=== PATIENT | female | born 1975 | race Caucasian/White ===

== ENCOUNTER 2016-11-29 23:11 | Observation (INO) | payer OTHER ==
[~2016-11-29] VITALS: Ht 154.9 cm; Wt 103.9 kg
[2016-11-29 23:13] VITALS: BP 159/115; PULSE 122; RESP 18; O2SAT 98
--- NOTE | 2016-11-29 23:52 | ED.REPORT ---
HPI-Rash / Abscess Date of Service Nov 29, 2016 ED Provider: Dr. Johnson The pt is a 41 y/o female with a hx of DM and MRSA who presents to the ED complaining of painful perineal abscess, onset 3 days ago. Associated sx include suprapubic pain and subjective fever. The pt had similar sx about a year ago at which point she had an I&D of her perineal abscess. She denies any other sx at this time. Nursing Notes Stated Complaint: PAIN IN GROIN AREA Chief Complaint: General Complaint Nursing Notes Reviewed: Yes Allergies: Coded Allergies: cephalexin (Verified Allergy, Unknown, rash, 11/29/16) Scheduled Metformin (Metformin) 500 Mg Tablet 2,000 MG PO DAILY General Time Seen by MD: 23:51 Chief Complaint Abscess Hx Obtained From: Patient Arrived By: Walk-in Onset Occurred: 3 days ago Symptom Duration: Since onset Location: : Perineum Quality: Painful Severity: Current: Severe Severity: Maximum: Severe Recent Healthcare: No recent doctor visit Past Medical History Past Medical History MRSA Reports: Diabetes mellitus Past Surgical History I&D of perineal abscess Smoking History Unknown if Ever Smoker Social History From [facility] Other Social History: Good social support Ambulatory Status Independent Review of Systems Reports: painful perineal abscess Constitutional: Reports: Fever (subjective) GI: Reports: Abdominal pain Complete sys rev & neg: except as marked. Physical Exam Initial Vital Signs Vital Signs (First) Date Time Temp Pulse Resp B/P Pulse Ox O2 Delivery O2 Flow Rate FiO2 11/29/16 23:13 36.6 122 18 159/115 98 Room Air Initial VS: Reviewed Head / Eyes: Atraumatic, Normocephalic Neck: Supple, Non-tender, Full range of motion Respiratory: Breath sounds normal, Clear to auscultation, No respiratory distress Abdomen / GI: Soft, Non-tender Extremities: Vascular intact, Neuro intact, No swelling, No tenderness Neurologic: Alert, Oriented, Nonfocal General/Constitutional: Awake, Alert, Cooperative Distress / Hydration: Positive: Distress moderate Skin: Atraumatic, Color NL, Warm, Dry Cardiovascular: Regular rhythm, Heart sounds NL, No gallop, No murmurs, No rubs Heart Rate / Rhythm: Positive: Tachycardia Female Genitourinary: Wastewater Technician present, Atraumatic, No bleeding, No discharge Swelling of both labia and superpubic area with erythema. Interpretation & Diagnostics Lab Results Interpretation Result Diagram: 11/30/16 0010 11/30/16 0010 Test 11/30/16 00:06 11/30/16 00:10 Hold Urine Received (Received) White Blood Count 8.8th/mm3 (3.8-10.1) Red Blood Count 4.50mil/mm3 (3.90-5.20) Hemoglobin 13.4g/dL (12.0-15.6) Hematocrit 37.8% (35.0-46.0) Mean Corpuscular Volume 84.0fL (81-100) Mean Corpuscular Hemoglobin 29.8pg (27.0-35.0) Mean Corpuscular Hemoglobin Concent 35.4% (32.0-37.0) Red Cell Distribution Width 14.8% (12.3-15.4) Platelet Count 183bil/L (150-400) Neutrophils (%) (Auto) 72.4% (40-74) Lymphocytes (%) (Auto) 19.5% (14-46) Monocytes (%) (Auto) 5.4% (4-12) Eosinophils (%) (Auto) 2.3% (0-5) Basophils (%) (Auto) 0.1% (0-3) Sodium Level 135mEq/L (134-144) Potassium Level 3.5mEq/L (3.5-5.2) Chloride Level 98mEq/L (97-108) Carbon Dioxide Level 22mmol/L (18-29) Blood Urea Nitrogen 8mg/dL (6-20) Creatinine 0.44mg/dL (0.57-1.00) Estimat Glomerular Filtration Rate 228mL/min (>59) Glucose Level 414mg/dL (60-99) Lactic Acid Level 1.3mmol/L (0.4-2.0) Calcium Level 9.0mg/dL (8.5-10.1) Magnesium Level 1.6mg/dL (1.6-2.6) Total Bilirubin 0.9mg/dL (0.0-1.2) Aspartate Amino Transf (AST/SGOT) 17U/L (0-50) Alanine Aminotransferase (ALT/SGPT) 18U/L (0-32) Alkaline Phosphatase 70U/L (25-150) Total Protein 7.3g/dL (6.4-8.4) Albumin 3.9g/dL (3.4-5.0) Lab Results Interpretation: negative X-Ray Chest Interpretation Chest Xray Interpretation: No acute findings View: Portable, 1 view Interpretation / Wet Read by: Wet read ED physician CT Abd / Pelvis Interpretation Impression: Inflammatory changes of the right vulva. No mature abscess collection. There is a more localized area of fluid measuring approximately 2.5 cm in greatest dimension. Follow up is recommended to rule out pietro abscess formation. Signed by Dr. Carrillo Wu 11/30/16 01:57 Study type: Abdominal CT IV contrast Interpretation / Wet Read by: Interpret - Radiologist Re-Eval/Medical Decision Med Decision/Clinical Course 37-year-old female who has a recurrent labial cellulitis/abscess. She is tachycardic but not hypotensive and does not meet other criteria for sepsis. However this is a fairly risky location for infection. The CT scan is not definitive for abscess but certainly suggestive of early abscess. Patient was discussed with and will be admitted to her service for IV antibiotics and recheck. I suspect that she will go to the OR for abscess drainage. Re-Evaluation/Progress : Time of Eval: 02:47 Re-Evaluation/Progress Note: Rechecked pt. Discussed lab results, imaging results,diagnosis and plan to admit. Pt understands and agrees with the plan for admission. All questions addressed. Consultation : Referral / Consult Name: Luisa Bernal MD Call Returned at: 02:40 Hatchery Attendant: Will see patient, Agrees with eval, Accepts admit Note: Dr. Bernal recommends admitting the pt. Counseled Regarding: Diagnosis, Lab results, Need for admission Discharge & Departure Impression: Primary Impression: Labial abscess Additional Impression: Cellulitis Site of cellulitis: other site Qualified Code: L03.818 - Cellulitis of other sites Disposition: ADMITTED TO HOSPITAL Discharge Condition All VS Reviewed: Yes Scribe Attestation Portions of this note were transcribed by Lizabeth Vick. I,, personally performed the history, physical exam and medical decision-making;I reviewed and confirmed the accuracy of the information in the transcribed note. Signed by Jennifer Hood. 11/30/16 Denny Johnson MD Nov 29, 2016 23:52 Lizabeth Vick Nov 30, 2016 00:36
[2016-11-29] MEDS ORDERED: 0.9% Sodium Chloride 1,000 ML IV ONE (23:56)
[2016-11-29] MEDS ORDERED: METF500T4 PO (23:57)
[2016-11-30] VITALS (9 sets, daily range): BP systolic 103–138; BP diastolic 72–99; PULSE 68–108; RESP 16–20; O2SAT 96–99
[2016-11-30] MEDS ORDERED: Ondansetron 2 mg/mL 2 mL Inj IVPUSH PRN (00:15)
[2016-11-30] MEDS: HYDROmorphone 0.5 mg/0.5 mL iSecure Syringe IVPUSH PRN ×5 (00:32→07:47)
[2016-11-30 00:47] LABS: BASOPHILS % (AUTO) 0.1 % (0-3); EOSINOPHILS % (AUTO) 2.3 % (0-5); MONOCYTES % (AUTO) 5.4 % (4-12); Mean Corpuscular Hemoglobin 29.8 pg (27.0-35.0); NEUTROPHILS % (AUTO) 72.4 % (40-74); Platelet Count 183 bil/L (150-400)
[2016-11-30 01:09] LABS: Magnesium 1.6 mg/dL (1.6-2.6)
[2016-11-30] MEDS ORDERED: Clindamycin Inj 900 MG in IV Premix 1 EACH IV ONE (02:30)
[2016-11-30] MEDS ORDERED: Dextrose 5% 0.45% NaCl 1,000 ML IV SCH (02:50)
[2016-11-30] MEDS ORDERED: HYDROmorphone 1 mg/mL Inj IVPUSH PRN (03:35)
[2016-11-30] MEDS ORDERED: ALBU8.5H2 INHALATION (04:24)
--- NOTE | 2016-11-30 06:14 | NUR ---
Admit Pt admitted to [facility] Rm 1028 at 0400 from the ER. Pt can ambulate independently and is steady on feet, although activity does cause increased pain. Pt reporting pain 3/10 to right side of labia at rest and does not feel the need for pain meds at this time. Pt placed NPO and educated on why. IV patent and running fluids. Pt placed on tele, SR 88. Pt given pad and mesh panties for minimal spotting.
[2016-11-30 07:25] LABS: APPEARANCE,URINE CLEAR (CLEAR,HAZY); COLOR,URINE YELLOW (YELLOW); OCCULT BLOOD,URINE NEGATIVE (NEGATIVE); UROBILINOGEN,URINE NORMAL (NORMAL)
[2016-11-30] MEDS ORDERED: 0.9% Sodium Chloride 1,000 ML IV ONE (07:35)
[2016-11-30] MEDS ORDERED: Glucose 40% Oral Gel 15 Gm Tube PO PRN (07:40)
--- NOTE | 2016-11-30 07:42 | DRSVH ---
PROCEDURE: X-RAY CHEST ONE VIEW, PORTABLE ([id number]) INDICATIONS: vulvar abscesses, septic TECHNIQUE: One view of the chest was acquired. COMPARISON: None. FINDINGS: Surgical changes and devices: None. Lungs and pleura: No pleural effusions or pneumothorax. Lungs are clear. Mediastinum: Mediastinal contours appear normal. Heart size is normal. Bones and chest wall: No suspicious bony lesions. Overlying soft tissues appear unremarkable. IMPRESSION: No radiographic evidence of acute cardiopulmonary pathology. Dictated by: Amrik Lee M.D. on 11/30/2016 at 7:40 Approved by: Amrik Lee M.D. on 11/30/2016 at 7:41
--- NOTE | 2016-11-30 08:57 | DRSVH ---
PROCEDURE: CT PELVIS WITH CONTRAST ([id number]) INDICATIONS: vulvar abscesses TECHNIQUE: After the administration of intravenous contrast, 5 mm thick sections acquired from the iliac crests to the symphysis. 5 mm coronal and sagittal reformats were acquired. For radiation dose reduction, the following was used: automated exposure control, adjustment of mA and/or kV according to patient size. COMPARISON: None. FINDINGS: Image quality: Excellent. Peritoneum and bowel: Bowel loops demonstrate normal wall thickness and caliber. No free fluid or a ir. Genitourinary: Bladder wall thickness is normal. Presence of intrauterine device noted. Nodes and vessels: No iliac, pelvic, or inguinal adenopathy by size criteria. Iliac vessels demonst rate normal size and enhancement. Bones: No suspicious bony lesions. Miscellaneous: No inguinal hernias. There is a 3.7 x 1.7 x 2.2 cm fluid collection with enhancing pe riphery in the right vulva compatible with abscess. Marked inflammatory changes are noted adjacent to the right vulvar abscess. IMPRESSION: 3.7 x 1.7 x 2.2 cm right vulvar abscess. Dictated by: Yuko Duron MD, PhD on 11/30/2016 at 8:45 Approved by: Yuko Duron MD, PhD on 11/30/2016 at 8:56
[2016-11-30] MEDS: Insulin LISPRO 300 Unit/3 mL Inj SUBQ SCH ×4 (09:09→22:09)
[2016-11-30] MEDS: Vancomycin Dose per Pharmacist XX SCH (09:50)
--- NOTE | 2016-11-30 09:51 | NUR ---
Blood Glucose Medium dose sliding scale ordered this AM by RONNI Bernal. Talked with her about blood glucose monitoring and she would like checks prior to meals and 2 hours after eating. Will check blood glucose at these times. Addendum: 11/30/16 at 1811 by MACY MADRID RN Patient's blood glucose continues to be over 200 while on Glargine and medium dose lispro. Paged Dr. Bernal to ask about changing insulin algorithm. Awaiting call back.
[2016-11-30] MEDS ORDERED: Insulin GLARgine 100 Unit/mL Syringe SUBQ SCH (09:55)
--- NOTE | 2016-11-30 10:03 | PCM.CHPMED ---
Subjective Date of Service: Nov 30, 2016 Provider requesting consult: Luisa Bernal MD Primary Physician: Admitting Physician: Luisa Bernal MD Primary Care Physician: Nopmaren Attending Physician: Luisa Bernal MD Chief Complaint: Chief Complaint: right vulvar painful swelling/6 days History of Present Illness: 41-year-old lady with past medical history of diabetes, history of right vulvar abscess presented with right vulvar painful swelling of 6 days. She states she noted a painful nodule on her right vulva 6 days ago which progressively increased in size and involved the whole right vulva with worsening of pain. Swelling and pain currently involves proximal part of medial thigh. Denies fever. Denies recent itching or scratching of vulva. She states she shaved her vulva few days prior to onset of swelling. Denies any recent sexual contact. She had similar right vulvar abscess a year ago which required hospitalization, I&D in OR and 2 weeks vancomycin via PICC line. She was told infection was MRSA . She has diabetes on metformin. She occasionally checks her blood glucose usual reading is in the 150s. ED course : Initial HR 122, BP 159/115, afebrile No leukocytosis, initial blood glucose 414, blood culture sent, wound culture sent. CT pelvis shows 3x2 cm abscess. Started on clindamycin IV. Admitted under shut off worker service. Medicine consulted for management of diabetes and antibiotics. Review of Systems: Comprehensive review of systems performed, pertinent positives and negatives included in history of present illness PMH Past Medical History Diabetes Obesity History of vulvar abscess History of MRSA infection Hx Diabetes: YesBedside Blood Glucose: 352 Surgical History Cholecystectomy Incision and drainage of vulvar abscess Home Medications Metformin Allergies: Coded Allergies: cephalexin (Verified Allergy, Unknown, rash, 11/29/16) Family History Family History Mother alive, 64 no significant medical issues Her dad at age 39 due to HIV/AIDs in 1988 Her grand father had diabetes Social History Hx Alcohol Use: NoHx Substance Use: NoHx Tobacco Use: Yes (6-7 cigarettes a day) Exam Vital Signs Vital Sign - Last Date Time Temp Pulse Resp B/P Pulse Ox O2 Delivery O2 Flow Rate FiO2 11/30/16 09:05 36.2 91 18 122/77 98 Room Air Intake and Output 11/29/16 11/29/16 11/30/16 Cumulative From/Thru 15:00 23:00 07:00 11/29/16 23:13 - 11/30/16 06:07 Intake Total 1189 ml 1189 ml Output Total 400 ml 400 ml Balance 789 ml 789 ml Intake IV Total 1189 ml 1189 ml Output Urine Total 400 ml 400 ml # Voids 1 1 General: Alert, Oriented X3, Cooperative Mouth: Mouth Normal Neck: Supple Chest & Lungs: Clear to auscultation & percussion Cardiovascular: Regular Rate/Rhythm, Normal S1, Normal S2, No Murmurs/Rubs/ Gallops Abdomen: Non-tender Genitourinary: Other (offered claim manager but declined ,right vulvar tender swelling 5x5cm,small opening at center with purulent discharge. Also 1x2cm tender nodule on proximal medial thigh. Erythematous, tender, warm to touch area on medial proximal thigh) Lab and Diagnostics Result Diagram: 11/30/16 0010 11/30/16 0010 12-lead ECG PROCEDURE: CT PELVIS WITH CONTRAST ([id number]) INDICATIONS: vulvar abscesses TECHNIQUE: After the administration of intravenous contrast, 5 mm thick sections acquired from the iliac crests to the symphysis. 5 mm coronal and sagittal reformats were acquired. For radiation dose reduction, the following was used: automated exposure control, adjustment of mA and/or kV according to patient size. COMPARISON: None. FINDINGS: Image quality: Excellent. Peritoneum and bowel: Bowel loops demonstrate normal wall thickness and caliber. No free fluid or air. Genitourinary: Bladder wall thickness is normal. Presence of intrauterine device noted. Nodes and vessels: No iliac, pelvic, or inguinal adenopathy by size criteria. Iliac vessels demonstrate normal size and enhancement. Bones: No suspicious bony lesions. Miscellaneous: No inguinal hernias. There is a 3.7 x 1.7 x 2.2 cm fluid collection with enhancing periphery in the right vulva compatible with abscess. Marked inflammatory changes are noted adjacent to the right vulvar abscess. IMPRESSION: 3.7 x 1.7 x 2.2 cm right vulvar abscess. Dictated by: Yuko Duron MD, PhD on 11/30/2016 at 8:45 Assessment & Plan Assessment 41-year-old lady with past medical history of diabetes, history of right vulvar abscess presented with right vulvar painful swelling of 6 days. # Right vulvar and proximal medial thigh cellulitis with abscess,poa,acute -no clinical evidence of sepsis -Pain control with morphine -Received a dose of clindamycin in ED.will broaden to Unasyn and vancomycin given history of MRSA -Blood culture and wound culture pending -vulvar abscess has opening and draining spontaneously.sales order specialist following for need for I&D # Uncontrolled diabetes -Patient on metformin at home,hold off for now -Initial blood glucose in 400s.will start lantus 12 U daily with ISS for tight glucose control # Obesity -BMI 43 inpatient full code Thank you for the consult. will follow patient along with you Problems: copies to: Luisa Bernal MD, Melaku MD Nov 30, 2016 10:03
[2016-11-30] MEDS ORDERED: Vancomycin Inj 1,750 MG in 0.9% Sodium Chloride 500 ML IV ONE (10:45)
--- NOTE | 2016-11-30 11:51 | PCM.CONPHA ---
Subjective right vulvar painful swelling/6 days Objective Vital Signs Date Time Temp Pulse Resp B/P Pulse Ox O2 Delivery O2 Flow Rate FiO2 11/30/16 11:06 85 11/30/16 09:05 36.2 91 18 122/77 98 Room Air 11/30/16 04:46 86 11/30/16 04:09 36.9 82 20 116/81 97 Room Air 11/30/16 03:29 100 19 124/88 96 Room Air 11/30/16 00:31 108 20 138/99 97 Room Air 11/29/16 23:13 36.6 122 18 159/115 98 Room Air Weight (Kilograms): 103.900 Height (Feet): 5 Height (Inches): 1.00 Test 11/29/16 23:15 11/30/16 00:06 11/30/16 00:10 11/30/16 10:04 Urine Color Yellow (YELLOW) Urine Appearance Clear (CLEAR,HAZY) Urine pH 5.0 (5.0-8.0) Urine Specific [place] 1.046 (1.003-1.035) Urine Protein Negativemg/dL (NEG,TRACE) Urine Glucose (UA) 500mg/dL (NEGATIVE) Urine Ketones 40mg/dL (NEGATIVE) Urine Occult Blood Negative (NEGATIVE) Urine Nitrite Negative (NEGATIVE) Urine Bilirubin Negative (NEGATIVE) Urine Urobilinogen Normalmg/dL (NORMAL) Urine Leukocyte Esterase Negative (NEGATIVE) Urine RBC 0-2/hpf (0-2) Urine WBC 0-5/hpf (0-5) Urine Epithelial Cells Few/hpf (NONE-MOD) Urine Crystals None seen (NONE SEEN) Urine Bacteria Few/hpf (NONE-FEW) Urine Hyaline Casts None/lpf (NONE) Urine Granular Casts None seen (NONE SEEN) Urine Waxy Casts None seen (NONE SEEN) Urine Red Blood Cell Casts None seen (NONE SEEN) Urine White Blood Cell Casts None seen (NONE SEEN) Urine Mucus None seen (None Seen) Urine Trichomonas None seen (NONE SEEN) Urine Yeast None (NONE SEEN) Urinalysis Comment None Urine Culture Reflexed Not indicated Hold Urine Received (Received) White Blood Count 8.8th/mm3 (3.8-10.1) Red Blood Count 4.50mil/mm3 (3.90-5.20) Hemoglobin 13.4g/dL (12.0-15.6) Hematocrit 37.8% (35.0-46.0) Mean Corpuscular Volume 84.0fL (81-100) Mean Corpuscular Hemoglobin 29.8pg (27.0-35.0) Mean Corpuscular Hemoglobin Concent 35.4% (32.0-37.0) Red Cell Distribution Width 14.8% (12.3-15.4) Platelet Count 183bil/L (150-400) Neutrophils (%) (Auto) 72.4% (40-74) Lymphocytes (%) (Auto) 19.5% (14-46) Monocytes (%) (Auto) 5.4% (4-12) Eosinophils (%) (Auto) 2.3% (0-5) Basophils (%) (Auto) 0.1% (0-3) Sodium Level 135mEq/L (134-144) Potassium Level 3.5mEq/L (3.5-5.2) Chloride Level 98mEq/L (97-108) Carbon Dioxide Level 22mmol/L (18-29) Blood Urea Nitrogen 8mg/dL (6-20) Creatinine 0.44mg/dL (0.57-1.00) Estimat Glomerular Filtration Rate 228mL/min (>59) Glucose Level 414mg/dL (60-99) Lactic Acid Level 1.3mmol/L (0.4-2.0) Calcium Level 9.0mg/dL (8.5-10.1) Magnesium Level 1.6mg/dL (1.6-2.6) Total Bilirubin 0.9mg/dL (0.0-1.2) Aspartate Amino Transf (AST/SGOT) 17U/L (0-50) Alanine Aminotransferase (ALT/SGPT) 18U/L (0-32) Alkaline Phosphatase 70U/L (25-150) Total Protein 7.3g/dL (6.4-8.4) Albumin 3.9g/dL (3.4-5.0) Assessment/Plan Assessment/Plan Patient is an 41 y.o. female receiving vancomycin for LABIAL ABSCESS. Concurrent abx include: UNASYN. WBC count is 8 and the patient isafebrile. Patient is 103kg, 61inches tall with a SCr of 0.4 mg/dL-- estimated CrCl of 120mL/min. Based on patient parameters vancomycin will be dosed at 1000mg q8h with a target trough of 10-15 /mL. Trough will be drawn prior to the 4th dose on 12/01 @ 1000. Pharmacy will follow daily and adjust as appropriate. Thank you for the consult in the care of this patient. RTMPharArt Mckeon Pharm.D Nov 30, 2016 11:51
--- NOTE | 2016-11-30 12:02 | PCM.HPMED ---
Subjective Date of Service Nov 30, 2016 Primary Provider: Admitting Physician: Luisa Bernal MD Primary Care Physician: Agustina Attending Physician: Luisa Bernal MD Admit Status: From the Emergency Department Chief Complaint: right vulvar painful swelling/6 days History of Present Illness: 41-year-old lady with past medical history of diabetes, history of right vulvar abscess presented with right vulvar painful swelling of 6 days. She states she noted a painful nodule on her right vulva 6 days ago which progressively increased in size and involved the whole right vulva with worsening of pain. Swelling and pain currently involves proximal part of medial thigh. Denies fever. Denies recent itching or scratching of vulva. She states she shaved her vulva few days prior to onset of swelling. Denies any recent sexual contact. She states that her blood sugars have been in the upper 300s for the last few weeks. She has not had good blood sugar control for quite some time. She had similar episodes in while living in [facility] of a right vulvar abscess a year ago which required hospitalization, I&D in OR and 2 weeks vancomycin via PICC line. She was told infection was MRSA . She has diabetes on metformin. She occasionally checks her blood glucose usual reading is in the 150s. ED course : Initial HR 122, BP 159/115, afebrile No leukocytosis, initial blood glucose 414, blood culture sent, wound culture sent. CT pelvis shows 3x2 cm abscess. Started on clindamycin IV. Admitted under finished cloth checker service. Medicine consulted for management of diabetes and antibiotics. Review of Systems: ROS negative except as in history of present illness Allergies Coded Allergies: cephalexin (Verified Allergy, Unknown, rash, 11/29/16) Home Medications Metformin 2000 mg daily Albuterol inhaler PMH Asthma Surgical History None Family History Mother diabetes mellitus type II Social History Hx Alcohol Use: No Hx Substance Use: No Hx Tobacco Use: Yes (6-7 cigarettes a day) Living Arrangement: with Family Exam Vital Signs Vital Sign - Last Date Time Temp Pulse Resp B/P Pulse Ox O2 Delivery O2 Flow Rate FiO2 11/30/16 11:06 85 11/30/16 09:05 36.2 18 122/77 98 Room Air Intake and Output 11/29/16 11/29/16 11/30/16 Cumulative From/Thru 15:00 23:00 07:00 11/29/16 23:13 - 11/30/16 06:07 Intake Total 1189 ml 1189 ml Output Total 400 ml 400 ml Balance 789 ml 789 ml Intake IV Total 1189 ml 1189 ml Output Urine Total 400 ml 400 ml # Voids 1 1 Exam General: Alert, Oriented X3, Cooperative Mouth: Mouth Normal Neck: Supple Chest & Lungs: Clear to auscultation Cardiovascular: Regular Rate/Rhythm, Normal S1, Normal S2, No Murmurs/Rubs/ Gallops Abdomen: Non-tender Genitourinary: right vulvar erythematous indurated and tender swelling 6cm was a purulent discharge Lab and Diagnostics Result Diagram: 11/30/16 0010 11/30/16 0010 Microbiology Laboratory Tests Test 11/29/16 23:15 11/29/16 23:54 11/30/16 00:06 11/30/16 00:10 Urine Color Yellow (YELLOW) Urine Appearance Clear (CLEAR,HAZY) Urine pH 5.0 (5.0-8.0) Urine Specific [place] 1.046 (1.003-1.035) Urine Protein Negativemg/dL (NEG,TRACE) Urine Glucose (UA) 500mg/dL (NEGATIVE) Urine Ketones 40mg/dL (NEGATIVE) Urine Occult Blood Negative (NEGATIVE) Urine Nitrite Negative (NEGATIVE) Urine Bilirubin Negative (NEGATIVE) Urine Urobilinogen Normalmg/dL (NORMAL) Urine Leukocyte Esterase Negative (NEGATIVE) Urine RBC 0-2/hpf (0-2) Urine WBC 0-5/hpf (0-5) Urine Epithelial Cells Few/hpf (NONE-MOD) Urine Crystals None seen (NONE SEEN) Urine Bacteria Few/hpf (NONE-FEW) Urine Hyaline Casts None/lpf (NONE) Urine Granular Casts None seen (NONE SEEN) Urine Waxy Casts None seen (NONE SEEN) Urine Red Blood Cell Casts None seen (NONE SEEN) Urine White Blood Cell Casts None seen (NONE SEEN) Urine Mucus None seen (None Seen) Urine Trichomonas None seen (NONE SEEN) Urine Yeast None (NONE SEEN) Urinalysis Comment None Urine Culture Reflexed Not indicated Hold Urine Received (Received) Received (Received) White Blood Count 8.8th/mm3 (3.8-10.1) Red Blood Count 4.50mil/mm3 (3.90-5.20) Hemoglobin 13.4g/dL (12.0-15.6) Hematocrit 37.8% (35.0-46.0) Mean Corpuscular Volume 84.0fL (81-100) Mean Corpuscular Hemoglobin 29.8pg (27.0-35.0) Mean Corpuscular Hemoglobin Concent 35.4% (32.0-37.0) Red Cell Distribution Width 14.8% (12.3-15.4) Platelet Count 183bil/L (150-400) Neutrophils (%) (Auto) 72.4% (40-74) Lymphocytes (%) (Auto) 19.5% (14-46) Monocytes (%) (Auto) 5.4% (4-12) Eosinophils (%) (Auto) 2.3% (0-5) Basophils (%) (Auto) 0.1% (0-3) Sodium Level 135mEq/L (134-144) Potassium Level 3.5mEq/L (3.5-5.2) Chloride Level 98mEq/L (97-108) Carbon Dioxide Level 22mmol/L (18-29) Blood Urea Nitrogen 8mg/dL (6-20) Creatinine 0.44mg/dL (0.57-1.00) Estimat Glomerular Filtration Rate 228mL/min (>59) Glucose Level 414mg/dL (60-99) Lactic Acid Level 1.3mmol/L (0.4-2.0) Calcium Level 9.0mg/dL (8.5-10.1) Magnesium Level 1.6mg/dL (1.6-2.6) Total Bilirubin 0.9mg/dL (0.0-1.2) Aspartate Amino Transf (AST/SGOT) 17U/L (0-50) Alanine Aminotransferase (ALT/SGPT) 18U/L (0-32) Alkaline Phosphatase 70U/L (25-150) Total Protein 7.3g/dL (6.4-8.4) Albumin 3.9g/dL (3.4-5.0) Test 11/30/16 10:04 Microbiology 11/29/16 Blood Culture, Received Pending 11/30/16 Gram Stain - Final, Resulted 11/30/16 Genital Culture, Resulted Pending Assessment & Plan 41-year-old lady with past medical history of diabetes mellitus type II, history of right vulvar abscess presented with right vulvar painful swelling of 6 days. Right vulvar and proximal medial thigh cellulitis with abscess,poa,acute -Pain control with by mouth hydrocodone -Received a dose of clindamycin in ED. -Allergy to Keflex patient has an allergy to Keflex -Antibiosis will be extended to Unasyn and gentamician - History of MRSA -Blood culture and wound culture pending -vulvar abscess is currently draining Uncontrolled diabetes mellitus type II, POA, chronic -Metformin 2000 mg daily. However states blood sugars have been in the 300s. Elevated blood glucose - Hospitalist consult for control of blood sugars we appreciate their input. Pain Evaluation: Adequate Pain Control Resuscitation Status: CPR: Attempt Resuscitation Namrata Bah DO Nov 30, 2016 12:02
[2016-11-30] MEDS: HYDROcodone-APAP 5-325 mg Tablet PO PRN ×2 (14:38→15:41)
[2016-11-30] MEDS: Ampicillin-Sulbactam Inj 3,000 MG in 0.9% Sodium Chloride 100 ML IV SCH ×2 (14:38→21:12)
--- NOTE | 2016-11-30 16:50 | NUR ---
Social Work- Brief Note/ Readiness for Discharge Data: EMR reviewed. Pt is a 41 year old female admitted under observation status for right labial cellulitis abscess per H&P. Pt's insurance is [employer]. Pt has no PCP but she is looking for one currently. Pt discussed in multidisciplinary rounds, pt is not medically stable for d/c anticipate 1-2 days. No SW needs identified in rounds. SW met with pt at bedside regarding d/c planning, SW role explained. Pt alert and oriented x3. Pt resides in [place] with her best friend where is in independent at baseline with self-care and ADLs. Pt drives. Pt declined DPOA paperwork, no DPOA on file. Pt's designated soup person is Wendie Mendoza, friend, . SW wrote phone number and plan on whiteboard. Pt to d/c home with friend to transport via POV. No d/c needs identified at this time. SW will continue to follow. Assessment: Pt who is independent at baseline. Plan: Pt to d/c home with friend to transport via POV. No d/c needs identified at this time. SW will continue to follow. FABBY Finley
--- NOTE | 2016-11-30 18:31 | NUR ---
Pain Patient has increased pain with movement and ambulation. Did receive order for PO pain medication and patient reported that her pain was well managed with this. Set patient up for sitz baths today and she tolerated them well and did state they actually helped with the pain and "felt good". Continuing to encourage sitz baths TID and assessing for pain management requirements.
[2016-11-30] MEDS: Vancomycin Inj 1,000 MG in IV Premix 1 EACH IV SCH (18:46)
[2016-12-01] MEDS: HYDROcodone-APAP 5-325 mg Tablet PO PRN ×5 (00:33→21:07)
[2016-12-01 00:55] VITALS: BP 119/80; PULSE 84; RESP 16; O2SAT 98
[2016-12-01] MEDS: Ampicillin-Sulbactam Inj 3,000 MG in 0.9% Sodium Chloride 100 ML IV SCH ×4 (02:50→22:48)
[2016-12-01] MEDS: Vancomycin Inj 1,000 MG in IV Premix 1 EACH IV SCH ×2 (04:10→11:00)
[2016-12-01 05:20] VITALS: BP 114/78; PULSE 88; RESP 16; O2SAT 95
--- NOTE | 2016-12-01 06:28 | NUR ---
Pain Pt is alert, oriented, and able to make needs known. Denies N/V/D, resp distress and/or SOB. Increased pain noted and pt verbalized pain with movement. Medicated with IV morphine x2 and [place] x1 with some relief. Sitz bath x1 on this shift and pt verbalized relief. ambulates to bathroom independently with steady gait. Will continue to monitor.
[2016-12-01 06:56] LABS: BASOPHILS % (AUTO) 0.1 % (0-3); EOSINOPHILS % (AUTO) 3.2 % (0-5); Mean Corpuscular Hemoglobin 29.3 pg (27.0-35.0); Mean Corpuscular Volume 86.3 fL (81-100); NEUTROPHILS % (AUTO) 64.3 % (40-74); Platelet Count 168 bil/L (150-400)
[2016-12-01] MEDS: Vancomycin Dose per Pharmacist XX SCH (08:27)
[2016-12-01] MEDS: Insulin GLARgine 100 Unit/mL Syringe SUBQ SCH ×2 (08:30→09:11)
[2016-12-01] MEDS: Insulin LISPRO 300 Unit/3 mL Inj SUBQ SCH ×4 (09:10→22:25)
[2016-12-01] MEDS ORDERED: Vancomycin Serum Trough XX ONE (10:00)
[2016-12-01] MEDS: Vancomycin Inj 1,250 MG in 0.9% Sodium Chloride 250 ML IV SCH ×2 (12:29→20:35)
[2016-12-01 12:58] VITALS: BP 105/72; PULSE 83; RESP 18; O2SAT 98
--- NOTE | 2016-12-01 13:28 | PCM.PHAPRO ---
Progress Date of Service: Dec 01, 2016 right vulvar painful swelling/6 days VANCOMYCIN MANAGEMENT A\ 41YO F WITH LABIAL ABSCESS SCR=0.33 MBHJ=393 WBC=7.2 VANCOMYCIN GOAL 10-15 VANCOMYCIN TROUGH=7.5 PREVIOUS VANCOMYCIN TO TROUGH GIVEN SLIGHTLY LATE SO THE TROUGH MIGHT BE FALSELY ELEVATED P\ WILL INCREASE VANCOMYCIN TO 1250MG IV Q8H TO BRING HER INTO GOAL RANGE. WILL START VANC 1250MG FOR 12/01 1200 AND DRAW A LEVEL BEFORE THE 4TH DOSE AT 1130 12/02. Kt Tovar [facility] Dec 01, 2016 13:28
--- NOTE | 2016-12-01 13:45 | PCM.PNMED ---
Subjective Date of Service Dec 01, 2016 Subjective 41 yo F with h/o uncontrolled DM2 and h/o MRSA vulvar abscess here for treatment of recurrent right vulvar cellulitis and abscess. Hospital day #2 Overnight, patient was started on IV Unasyn and IV Vancomycin. She tolerated those antibiotics well. She had moderate pain that was controlled with PO [place] and IV morphine for breakthrough. Today, she reports feeling better and has not had any subjective fever sensation. Her pain is less at baseline but still fairly severe with palpation or dressing changes. She reports that the Sitz baths are helpful for her pain. She is still noticing drainage out of the region. She is disappointed in having to be on insulin and would like to be off of it if possible. Exam Vital Signs Vital Sign - Last Date Time Temp Pulse Resp B/P Pulse Ox O2 Delivery O2 Flow Rate FiO2 12/01/16 12:58 36.6 83 18 105/72 98 Room Air Intake and Output 11/30/16 11/30/16 12/01/16 Cumulative From/Thru 15:00 23:00 07:00 11/29/16 23:13 - 12/01/16 06:50 Intake Total 2316 ml 1455 ml 4960 ml Output Total 1300 ml 400 ml 2100 ml Balance 1016 ml 1055 ml 2860 ml Intake Oral 1000 ml 300 ml 1300 ml IV Total 1316 ml 1155 ml 3660 ml Output Urine Total 1300 ml 400 ml 2100 ml # Voids 1 # Bowel Movements 0 0 Exam Gen.: Obese female who appears in no acute distress, cooperative CV: Regular rate and rhythm with no murmurs noted Respiratory: CTA B, normal respiratory effort Abdomen: Obese, soft, nontender : Right lateral vulvar abscess with serosanguineous/purulent drainage, surrounded by dark woody mildly indurated erythema of medial thigh, this is improving compared to yesterday MSK: Muscle strength grossly intact, no focal weakness Skin: No other rashes, warm, dry Psych: Alert and oriented 3, appropriate mood and affect IVs and Medications Medications Reviewed: Medications were reviewed in detail Lab and Diagnostics Result Diagram: 12/01/16 0545 12/01/16 0545 Microbiology Laboratory Tests Test 11/29/16 23:15 11/29/16 23:54 11/30/16 00:06 11/30/16 00:10 Urine Color Yellow (YELLOW) Urine Appearance Clear (CLEAR,HAZY) Urine pH 5.0 (5.0-8.0) Urine Specific [place] 1.046 (1.003-1.035) Urine Protein Negativemg/dL (NEG,TRACE) Urine Glucose (UA) 500mg/dL (NEGATIVE) Urine Ketones 40mg/dL (NEGATIVE) Urine Occult Blood Negative (NEGATIVE) Urine Nitrite Negative (NEGATIVE) Urine Bilirubin Negative (NEGATIVE) Urine Urobilinogen Normalmg/dL (NORMAL) Urine Leukocyte Esterase Negative (NEGATIVE) Urine RBC 0-2/hpf (0-2) Urine WBC 0-5/hpf (0-5) Urine Epithelial Cells Few/hpf (NONE-MOD) Urine Crystals None seen (NONE SEEN) Urine Bacteria Few/hpf (NONE-FEW) Urine Hyaline Casts None/lpf (NONE) Urine Granular Casts None seen (NONE SEEN) Urine Waxy Casts None seen (NONE SEEN) Urine Red Blood Cell Casts None seen (NONE SEEN) Urine White Blood Cell Casts None seen (NONE SEEN) Urine Mucus None seen (None Seen) Urine Trichomonas None seen (NONE SEEN) Urine Yeast None (NONE SEEN) Urinalysis Comment None Urine Culture Reflexed Not indicated Hold Urine Received (Received) Received (Received) White Blood Count 8.8th/mm3 (3.8-10.1) Red Blood Count 4.50mil/mm3 (3.90-5.20) Hemoglobin 13.4g/dL (12.0-15.6) Hematocrit 37.8% (35.0-46.0) Mean Corpuscular Volume 84.0fL (81-100) Mean Corpuscular Hemoglobin 29.8pg (27.0-35.0) Mean Corpuscular Hemoglobin Concent 35.4% (32.0-37.0) Red Cell Distribution Width 14.8% (12.3-15.4) Platelet Count 183bil/L (150-400) Neutrophils (%) (Auto) 72.4% (40-74) Lymphocytes (%) (Auto) 19.5% (14-46) Monocytes (%) (Auto) 5.4% (4-12) Eosinophils (%) (Auto) 2.3% (0-5) Basophils (%) (Auto) 0.1% (0-3) Sodium Level 135mEq/L (134-144) Potassium Level 3.5mEq/L (3.5-5.2) Chloride Level 98mEq/L (97-108) Carbon Dioxide Level 22mmol/L (18-29) Blood Urea Nitrogen 8mg/dL (6-20) Creatinine 0.44mg/dL (0.57-1.00) Estimat Glomerular Filtration Rate 228mL/min (>59) Glucose Level 414mg/dL (60-99) Lactic Acid Level 1.3mmol/L (0.4-2.0) Calcium Level 9.0mg/dL (8.5-10.1) Magnesium Level 1.6mg/dL (1.6-2.6) Total Bilirubin 0.9mg/dL (0.0-1.2) Aspartate Amino Transf (AST/SGOT) 17U/L (0-50) Alanine Aminotransferase (ALT/SGPT) 18U/L (0-32) Alkaline Phosphatase 70U/L (25-150) Total Protein 7.3g/dL (6.4-8.4) Albumin 3.9g/dL (3.4-5.0) Test 11/30/16 10:04 Microbiology 11/29/16 Blood Culture, Received Pending 11/30/16 Gram Stain - Final, Resulted 11/30/16 Genital Culture, Resulted Pending Assessment & Plan 41-year-old lady with past medical history of diabetes mellitus type II, history of right vulvar abscess presented with right vulvar pain and swelling x 6 days Right vulvar and proximal medial thigh cellulitis with abscess, poa, acute -Patient reports that this is a recurrent issue. Likely related to obesity and uncontrolled DM2. P -Pain control with by mouth hydrocodone/ and IV morphine for severe breakthrough -Received a dose of clindamycin in ED on 11/30, This was DC and changed to IV Unasyn and IV Vancomycin to cover MRSA -Blood culture and abscess culture pending - prelim results shows GPC. - Continue with Sitz bath daily and encourage ambulation. -GC/CT screen pending Uncontrolled diabetes mellitus type II, POA, chronic -Appreciate Hospitalist expertise and time. Will continue with current Insulin regimen and titrate up as needed -A1c 10.1 on admission BMI 43.3 -Encouraged healthy lifestyle for weight loss Tobacco Use, POA -Encourage cessation -Nicotine patch prn Code status: CPR Dispo: Likely discharge tomorrow if cultures return and patient continues to improve. Likely follow up with [facility] for short interval f/u. Pain Evaluation: Adequate Pain Control VTE Prophylaxis: Sub-Q Enoxaparin Resuscitation Status: CPR: Attempt Resuscitation Limited Interventions: Cardioversion/Defibrillation Srikanth Gastelum DO Dec 01, 2016 13:27
--- NOTE | 2016-12-01 14:25 | PCM.PNMED ---
Subjective Date of Service Dec 01, 2016 Subjective right labial swelling and pain improved. Afebrile. Blood glucose better controlled. Exam Vital Signs Vital Sign - Last Date Time Temp Pulse Resp B/P Pulse Ox O2 Delivery O2 Flow Rate FiO2 12/01/16 12:58 36.6 83 18 105/72 98 Room Air Intake and Output 11/30/16 11/30/16 12/01/16 Cumulative From/Thru 15:00 23:00 07:00 11/29/16 23:13 - 12/01/16 06:50 Intake Total 2316 ml 1455 ml 4960 ml Output Total 1300 ml 400 ml 2100 ml Balance 1016 ml 1055 ml 2860 ml Intake Oral 1000 ml 300 ml 1300 ml IV Total 1316 ml 1155 ml 3660 ml Output Urine Total 1300 ml 400 ml 2100 ml # Voids 1 # Bowel Movements 0 0 Exam General: Alert, Oriented X3, Cooperative Mouth: Mouth Normal Neck: Supple Chest & Lungs: Clear to auscultation & percussion Cardiovascular: Regular Rate/Rhythm, Normal S1, Normal S2, No Murmurs/Rubs/ Gallops Abdomen: Non-tender Genitourinary: Other (offered upholsterer outside but declined ,right vulvar tender swelling 5x5cm,small opening at center with purulent discharge. Also 1x2cm tender nodule on proximal medial thigh. Erythematous, tender, warm to touch area on medial proximal thigh) IVs and Medications Medications Reviewed: Medications were reviewed in detail Lab and Diagnostics Result Diagram: 12/01/16 0545 12/01/16 0545 Microbiology Laboratory Tests Test 11/29/16 23:15 11/29/16 23:54 11/30/16 00:06 11/30/16 00:10 Urine Color Yellow (YELLOW) Urine Appearance Clear (CLEAR,HAZY) Urine pH 5.0 (5.0-8.0) Urine Specific [place] 1.046 (1.003-1.035) Urine Protein Negativemg/dL (NEG,TRACE) Urine Glucose (UA) 500mg/dL (NEGATIVE) Urine Ketones 40mg/dL (NEGATIVE) Urine Occult Blood Negative (NEGATIVE) Urine Nitrite Negative (NEGATIVE) Urine Bilirubin Negative (NEGATIVE) Urine Urobilinogen Normalmg/dL (NORMAL) Urine Leukocyte Esterase Negative (NEGATIVE) Urine RBC 0-2/hpf (0-2) Urine WBC 0-5/hpf (0-5) Urine Epithelial Cells Few/hpf (NONE-MOD) Urine Crystals None seen (NONE SEEN) Urine Bacteria Few/hpf (NONE-FEW) Urine Hyaline Casts None/lpf (NONE) Urine Granular Casts None seen (NONE SEEN) Urine Waxy Casts None seen (NONE SEEN) Urine Red Blood Cell Casts None seen (NONE SEEN) Urine White Blood Cell Casts None seen (NONE SEEN) Urine Mucus None seen (None Seen) Urine Trichomonas None seen (NONE SEEN) Urine Yeast None (NONE SEEN) Urinalysis Comment None Urine Culture Reflexed Not indicated Hold Urine Received (Received) Received (Received) White Blood Count 8.8th/mm3 (3.8-10.1) Red Blood Count 4.50mil/mm3 (3.90-5.20) Hemoglobin 13.4g/dL (12.0-15.6) Hematocrit 37.8% (35.0-46.0) Mean Corpuscular Volume 84.0fL (81-100) Mean Corpuscular Hemoglobin 29.8pg (27.0-35.0) Mean Corpuscular Hemoglobin Concent 35.4% (32.0-37.0) Red Cell Distribution Width 14.8% (12.3-15.4) Platelet Count 183bil/L (150-400) Neutrophils (%) (Auto) 72.4% (40-74) Lymphocytes (%) (Auto) 19.5% (14-46) Monocytes (%) (Auto) 5.4% (4-12) Eosinophils (%) (Auto) 2.3% (0-5) Basophils (%) (Auto) 0.1% (0-3) Sodium Level 135mEq/L (134-144) Potassium Level 3.5mEq/L (3.5-5.2) Chloride Level 98mEq/L (97-108) Carbon Dioxide Level 22mmol/L (18-29) Blood Urea Nitrogen 8mg/dL (6-20) Creatinine 0.44mg/dL (0.57-1.00) Estimat Glomerular Filtration Rate 228mL/min (>59) Glucose Level 414mg/dL (60-99) Lactic Acid Level 1.3mmol/L (0.4-2.0) Calcium Level 9.0mg/dL (8.5-10.1) Magnesium Level 1.6mg/dL (1.6-2.6) Total Bilirubin 0.9mg/dL (0.0-1.2) Aspartate Amino Transf (AST/SGOT) 17U/L (0-50) Alanine Aminotransferase (ALT/SGPT) 18U/L (0-32) Alkaline Phosphatase 70U/L (25-150) Total Protein 7.3g/dL (6.4-8.4) Albumin 3.9g/dL (3.4-5.0) Test 11/30/16 10:04 Microbiology 11/29/16 Blood Culture, Received Pending 11/30/16 Gram Stain - Final, Resulted 11/30/16 Genital Culture, Resulted Pending Assessment & Plan 41-year-old lady with past medical history of diabetes, history of right vulvar abscess presented with right vulvar painful swelling of 6 days. # Right vulvar and proximal medial thigh cellulitis with abscess,poa,acute -no clinical evidence of sepsis -Pain control with morphine -Received a dose of clindamycin in ED.will broaden to Unasyn and vancomycin given history of MRSA -Blood culture negative 2 and wound culture gram-positive cocci -vulvar abscess has opening and draining spontaneously.sales planning analyst following for need for I&D -sitz bath # Uncontrolled diabetes -Patient on metformin at home,hold off for now -Initial blood glucose in 400s. started lantus 12 U daily with ISS for tight glucose control.increase lantus to 16 u . Plan to discharge her on Lantus -A1c 10.1 , -diabetes education by laundry aid # Obesity -BMI 43 inpatient full code Thank you for the consult. will follow patient along with you VTE Prophylaxis: Sub-Q Enoxaparin Resuscitation Status: CPR: Attempt Resuscitation Limited Interventions: Cardioversion/Defibrillation Grover Lau MD Dec 01, 2016 14:25
--- NOTE | 2016-12-01 16:26 | NUR ---
NUTRITION CONSULT Consult received re diabetes education. Provided nutrition education re carbohydrate counting/meal planning and hypoglycemia awareness with new insulin start. Referral for outpatient diabetes education filled out, awaiting establishment of PCP to complete form. MOC RN consulted re insulin training/education.
[2016-12-01 20:18] VITALS: BP 109/67; PULSE 72; RESP 18; O2SAT 100
[2016-12-01] MEDS ORDERED: Ondansetron 2 mg/mL 2 mL Inj IVPUSH ONE (23:05)
--- NOTE | 2016-12-02 02:37 | NUR ---
Pain/N/V On initial assessment, patients stated denise abscess pain 7/10 on pain scale. [place] PO administered. Shortly after administering medication, patient complained of nausea. Patient had one small emesis . Per patient, [place] upsets her stomach and causes itching. Dr. Kolb paged and made aware of situation. Ondansetron 4mg IVP was ordered and administered. [place] was switched to plain oxycodone. Patient used sitz bath before going to sleep. Call light within reach. Care continues.
[2016-12-02] MEDS: Ampicillin-Sulbactam Inj 3,000 MG in 0.9% Sodium Chloride 100 ML IV SCH ×3 (04:52→16:01)
[2016-12-02 05:17] VITALS: BP 107/72; PULSE 93; RESP 18; O2SAT 98
[2016-12-02] MEDS: Vancomycin Inj 1,250 MG in 0.9% Sodium Chloride 250 ML IV SCH ×2 (05:30→13:34)
[2016-12-02 06:11] LABS: BASOPHILS % (AUTO) 0.2 % (0-3); EOSINOPHILS % (AUTO) 3.6 % (0-5); MONOCYTES % (AUTO) 5.8 % (4-12); Mean Corpuscular Hemoglobin 29.1 pg (27.0-35.0); Mean Corpuscular Volume 86.8 fL (81-100); NEUTROPHILS % (AUTO) 48.4 % (40-74); Platelet Count 159 bil/L (150-400)
[2016-12-02] MEDS: Insulin LISPRO 300 Unit/3 mL Inj SUBQ SCH ×3 (07:41→17:27)
[2016-12-02] MEDS ORDERED: Insulin GLARgine 100 Unit/mL Syringe SUBQ SCH (08:30)
[2016-12-02] MEDS: Vancomycin Dose per Pharmacist XX SCH (08:30)
[2016-12-02 08:52] LABS: ERYTHROCYTE SEDIMENTATION RATE 42 mm/hr (0-32)
--- NOTE | 2016-12-02 11:22 | NUR ---
Social Work: Continued Discharge Planning/Multidisciplinary Rounds D: EMR reviewed. Pt is on day 2 of hospitalization. Pt discussed in multidisciplinary rounds and is not medically stable for discharge home today. SW received MD order to schedule PCP follow-up appointment. Pt provided with follow-up appointment card including address, phone number, and date. No other needs identified at this time. SW will continue to follow until time of discharge. A: Pt who is independent at baseline. P: Pt anticipated to return home via POV. SW scheduled follow-up PCP appointment, per MD order, for 12/07/16 at 13:[address] Richmond Frazier at [facility]. Pt provided with appointment card. Pt agreeable. No other needs identified at this time. SW will continue to follow until time of discharge. FABBY Figueroa
--- NOTE | 2016-12-02 11:28 | PCM.PNMED ---
Subjective Date of Service Dec 02, 2016 Subjective 41 yo F with h/o uncontrolled DM2 and h/o MRSA vulvar abscess here for treatment of recurrent right vulvar cellulitis and abscess. Hospital day #3 Doing better this morning. Able to shower and ambulate with decreasing pain. Still having some mild drainage. Denies any fevers, CP, SOB, or diarrhea. Exam Vital Signs Vital Sign - Last Date Time Temp Pulse Resp B/P Pulse Ox O2 Delivery O2 Flow Rate FiO2 12/02/16 05:17 36.7 93 18 107/72 98 Room Air Intake and Output 12/01/16 12/01/16 12/02/16 Cumulative From/Thru 15:00 23:00 07:00 11/29/16 23:13 - 12/02/16 05:48 Intake Total 367 ml 240 ml 915 ml 6482 ml Output Total 400 ml 400 ml 600 ml 3500 ml Balance -33 ml -160 ml 315 ml 2982 ml Intake Oral 240 ml 325 ml 1865 ml IV Total 367 ml 590 ml 4617 ml Output Urine Total 400 ml 400 ml 600 ml 3500 ml # Voids 1 # Bowel Movements 0 0 Exam Gen.: Obese female who appears in no acute distress, cooperative CV: Regular rate and rhythm with no murmurs noted Respiratory: CTA B, normal respiratory effort Abdomen: Obese, soft, nontender : Right lateral vulvar abscess with mild serosanguineous drainage, Much improved erythema, but still a few dense cysts on posterior thigh. Mildly tender to palpation. MSK: Muscle strength grossly intact, no focal weakness Skin: No other rashes, warm, dry Psych: Alert and oriented 3, appropriate mood and affect IVs and Medications Medications Reviewed: Medications were reviewed in detail Lab and Diagnostics Result Diagram: 12/02/1652912/02/16529 Microbiology Laboratory Tests Test 11/29/16 23:15 11/29/16 23:54 11/30/16 00:06 11/30/16 00:10 Urine Color Yellow (YELLOW) Urine Appearance Clear (CLEAR,HAZY) Urine pH 5.0 (5.0-8.0) Urine Specific [place] 1.046 (1.003-1.035) Urine Protein Negativemg/dL (NEG,TRACE) Urine Glucose (UA) 500mg/dL (NEGATIVE) Urine Ketones 40mg/dL (NEGATIVE) Urine Occult Blood Negative (NEGATIVE) Urine Nitrite Negative (NEGATIVE) Urine Bilirubin Negative (NEGATIVE) Urine Urobilinogen Normalmg/dL (NORMAL) Urine Leukocyte Esterase Negative (NEGATIVE) Urine RBC 0-2/hpf (0-2) Urine WBC 0-5/hpf (0-5) Urine Epithelial Cells Few/hpf (NONE-MOD) Urine Crystals None seen (NONE SEEN) Urine Bacteria Few/hpf (NONE-FEW) Urine Hyaline Casts None/lpf (NONE) Urine Granular Casts None seen (NONE SEEN) Urine Waxy Casts None seen (NONE SEEN) Urine Red Blood Cell Casts None seen (NONE SEEN) Urine White Blood Cell Casts None seen (NONE SEEN) Urine Mucus None seen (None Seen) Urine Trichomonas None seen (NONE SEEN) Urine Yeast None (NONE SEEN) Urinalysis Comment None Urine Culture Reflexed Not indicated Hold Urine Received (Received) Received (Received) White Blood Count 8.8th/mm3 (3.8-10.1) Red Blood Count 4.50mil/mm3 (3.90-5.20) Hemoglobin 13.4g/dL (12.0-15.6) Hematocrit 37.8% (35.0-46.0) Mean Corpuscular Volume 84.0fL (81-100) Mean Corpuscular Hemoglobin 29.8pg (27.0-35.0) Mean Corpuscular Hemoglobin Concent 35.4% (32.0-37.0) Red Cell Distribution Width 14.8% (12.3-15.4) Platelet Count 183bil/L (150-400) Neutrophils (%) (Auto) 72.4% (40-74) Lymphocytes (%) (Auto) 19.5% (14-46) Monocytes (%) (Auto) 5.4% (4-12) Eosinophils (%) (Auto) 2.3% (0-5) Basophils (%) (Auto) 0.1% (0-3) Sodium Level 135mEq/L (134-144) Potassium Level 3.5mEq/L (3.5-5.2) Chloride Level 98mEq/L (97-108) Carbon Dioxide Level 22mmol/L (18-29) Blood Urea Nitrogen 8mg/dL (6-20) Creatinine 0.44mg/dL (0.57-1.00) Estimat Glomerular Filtration Rate 228mL/min (>59) Glucose Level 414mg/dL (60-99) Lactic Acid Level 1.3mmol/L (0.4-2.0) Calcium Level 9.0mg/dL (8.5-10.1) Magnesium Level 1.6mg/dL (1.6-2.6) Total Bilirubin 0.9mg/dL (0.0-1.2) Aspartate Amino Transf (AST/SGOT) 17U/L (0-50) Alanine Aminotransferase (ALT/SGPT) 18U/L (0-32) Alkaline Phosphatase 70U/L (25-150) Total Protein 7.3g/dL (6.4-8.4) Albumin 3.9g/dL (3.4-5.0) Test 11/30/16 10:04 Microbiology 11/29/16 Blood Culture, Received Pending 11/30/16 Gram Stain - Final, Resulted 11/30/16 Genital Culture, Resulted Pending Assessment & Plan 41-year-old lady with past medical history of diabetes mellitus type II, history of right vulvar abscess presented with right vulvar pain and swelling x 6 days Right vulvar and proximal medial thigh cellulitis with abscess, poa, acute -Patient reports that this is a recurrent issue. Likely related to obesity and uncontrolled DM2. Improving -Pain control with Percocet PO -Received a dose of clindamycin in ED on 11/30, This was DC and changed to IV Unasyn and IV Vancomycin to cover MRSA -Blood culture and abscess culture pending - prelim results shows GPC (Staph and GBS). Awaiting BRET, continue with IV abx for now. May transition to Augmentin and Doxycycline for coverage of both organism. -Continue with Sitz bath daily and encourage ambulation. -GC/CT screen neg. ASO 64 Uncontrolled diabetes mellitus type II, POA, chronic -Appreciate Hospitalist expertise and time. Will continue with current Insulin regimen and titrate up as needed -A1c 10.1 on admission -Likely discharge on 16-20 units of Lantus QHS and maybe sliding scale throughout the day. Will need to set that up and to prescribe glucometer. BMI 43.3 -Encouraged healthy lifestyle for weight loss Tobacco Use, POA -Encourage cessation -Nicotine patch prn Code status: CPR Dispo: Likely discharge tomorrow, awaiting culture BRET. Likely follow up with [facility] for [facility] interval f/u and also follow up [facility] with Dr. Nisa Bah in 2-3 days. Pain Evaluation: Adequate Pain Control VTE Prophylaxis: Sub-Q Enoxaparin Resuscitation Status: CPR: Attempt Resuscitation Attending Statement The patient was seen and examined together with Dr.Ngo GARDINER on 12/02/2016 and I agree with the history, exam and plan as outlined in the note above. Srikanth Gastelum DO Dec 02, 2016 11:28 Chapito Madison MD Dec 06, 2016 19:31
[2016-12-02] MEDS ORDERED: Vancomycin Serum Trough XX ONE (11:30)
--- NOTE | 2016-12-02 13:09 | NUR ---
Pain/IV site Patient requesting roxycodone 5mg q4h for right groin or lower back pain. Right labia/inner thigh abscesses swollen, painful & oozing, patient encouraged to shower this a.m. to cleanse site, clean underwear & pad placed post shower. Right anterior forearm IV tenderness & redness. IV site suspicious for infiltration, unable to get blood return. Patient nervous to have new IV placed, stated she's a hard poke, "I'll just deal with the one I have", explained the importance of IV being in her venous system, agreeable, IV therapy called @ 1145 for a new placement. RN assess veins w/ tourniquet, not a good candidate for primary RN.
[2016-12-02 13:35] VITALS: BP 127/89; PULSE 99; RESP 16; O2SAT 99
[2016-12-02] MEDS ORDERED: Lactulose 20 Gm/30 mL 30 mL Syrup PO ONE (16:45)
[2016-12-02] MEDS ORDERED: OXYC5TAB72 PO (17:41)
[2016-12-02] MEDS ORDERED: AMOX-366 PO (17:41)
[2016-12-02] MEDS ORDERED: IBUP-1827 PO (17:41)
[2016-12-02] MEDS ORDERED: DOXY100C43 PO (17:41)
[2016-12-02] MEDS ORDERED: INSU100V7 SUBQ (17:41)
--- NOTE | 2016-12-02 17:45 | PCM.DIGYN ---
Surgical Discharge Instruction Dates of Hospitalization Date of Hospital Admission Nov 30, 2016 at 03:14 Providers Admitting Physician: Luisa Bernal MD Primary Care Physician: Agustina Attending Physician: Luisa Bernal MD Diagnosis at Time of Discharge Diagnosis at time of discharge Vulvar Cellulitis with Abscess Type 2 Diabetes Mellitus Problems: Diet Discharge Diet: Diabetic Activity Discharge Activity-General: No restrictions, Be up and about, Balance rest and activity, Elevate & ice extremity, No driving while taking narcotic Dressing and Incisional Care Hygiene: May shower, Wash incision with soap & water, Other (Sitz Baths ok) Additional Instructions Discharge Instructions You were admitted to the hospital for your skin infection. This is looking better, but you still need to be on antibiotics for another 10 days. Please picked him up from the pharmacy and take them as instructed. He may also take probiotics at home to avoid stomach upset. Please follow up with Dr. Bah at the residency clinic at your scheduled time. We have prescribed oxycodone for pain, use this sparingly, do not take while driving. If your symptoms worsen please return to the ER for evaluation Follow Up Plan Follow Up Plan Please see Dr. Namrata Bah ([phone]) at the [facility], Monday12/07/16 at 8:30am for your hospital follow-up appointment. Follow-up Provider (F9): Namrata Bah DO Follow-up appointment: Days (3) Call your provider for: Fever, Chills, Shortness of breath, Vomitting, Increasing pain Srikanth Gastelum DO Dec 02, 2016 17:45
[2016-12-02] MEDS ORDERED: DOCU-41 PO (17:47)
--- NOTE | 2016-12-02 17:51 | PCM.DC.MED ---
Discharge Summary Date of Service Dec 02, 2016 Dates of Hospitalization Date of Hospital Admission Nov 30, 2016 at 03:14 Date of Discharge: Dec 02, 2016 Providers: Admitting Physician: Luisa Bernal MD Primary Care Physician: Nopmaren Attending Physician: Luisa Bernal MD Diagnosis at Time of Discharge Diagnosis at Time of Discharge Right vulvar and proximal medial thigh cellulitis with abscess Uncontrolled diabetes mellitus type II BMI 43.3 Tobacco Use Consultations Hospitalist consult Procedures XRay, CTs & MRIs CT PELVIS WITH CONTRAST IMPRESSION: 3.7 x 1.7 x 2.2 cm right vulvar abscess. Dictated by: Yuko Duron MD, PhD on 11/30/2016 at 8:45 X-RAY CHEST ONE VIEW, PORTABLE IMPRESSION: No radiographic evidence of acute cardiopulmonary pathology. Dictated by: Amrik Lee M.D. on 11/30/2016 at 7:40 Brief History 41-year-old lady with past medical history of diabetes, history of right vulvar abscess presented with right vulvar painful swelling of 6 days. She stated she noted a painful nodule on her right vulva 6 days ago which progressively increased in size and involved the whole right vulva with worsening of pain. Swelling and pain currently involves proximal part of medial thigh. Denies fever. Denies recent itching or scratching of vulva. She states she shaved her vulva few days prior to onset of swelling. Denies any recent sexual contact. She states that her blood sugars have been in the upper 300s for the last few weeks. She has not had good blood sugar control for quite some time. She had similar episodes in while living in [facility] of a right vulvar abscess a year ago which required hospitalization, I&D in OR and 2 weeks vancomycin via PICC line. She was told the infection was MRSA . She has diabetes on metformin. She occasionally checks her blood glucose usual reading is in the 150s. ED course : Initial HR 122, BP 159/115, afebrile No leukocytosis, initial blood glucose 414, blood culture sent, wound culture sent. CT pelvis shows 3x2 cm abscess. Started on clindamycin IV. Admitted under textile designer service. Medicine consulted for management of diabetes and antibiotics. Hospital Course 41-year-old lady with past medical history of diabetes mellitus type II, history of right vulvar abscess presented with right vulvar pain and swelling x 6 days Right vulvar and proximal medial thigh cellulitis with abscess, poa, acute -Patient reported that this is a recurrent issue. Likely related to obesity and uncontrolled DM2. Improving -Pain control with Percocet PO -Received a dose of clindamycin in ED on 11/30, This was DC and changed to IV Unasyn and IV Vancomycin to cover MRSA. -Blood culture and abscess culture pending - prelim results shows GPC (Staph and GBS). Awaiting BRET, discharged on Augmentin and Doxycycline for coverage of both organism. -Continue with Sitz bath daily and encourage ambulation. -GC/CT screen neg. ASO 64 Uncontrolled diabetes mellitus type II, POA, chronic -Appreciate Hospitalist expertise and time. Patient will continue with current Insulin regimen and titrate as needed -A1c 10.1 on admission -Lantus QHS and glucometer prescribed. BMI 43.3 -Encouraged healthy lifestyle for weight loss Tobacco Use, POA -Encourage cessation -Nicotine patch prn Dispo: Discharge today, tomorrow, awaiting culture BRET. Likely follow up with [facility] for short interval f/u and also follow up at [facility] with Dr. Namrata Bah in 2-3 days. Exam Vital Signs (Last) Date Time Temp Pulse Resp B/P Pulse Ox O2 Delivery O2 Flow Rate FiO2 12/02/16 13:35 36.9 99 16 127/89 99 Room Air Exam Gen.: Obese female who appears in no acute distress, cooperative CV: Regular rate and rhythm with no murmurs noted Respiratory: CTA B, normal respiratory effort Abdomen: Obese, soft, nontender : Right lateral vulvar abscess with mild serosanguineous drainage, Much improved erythema, but still a few dense cysts on posterior thigh. Mildly tender to palpation. MSK: Muscle strength grossly intact, no focal weakness Skin: No other rashes, warm, dry Psych: Alert and oriented 3, appropriate mood and affect Test 11/29/16 23:15 11/30/16 00:06 11/30/16 00:10 11/30/16 10:04 Urine Color Yellow (YELLOW) Urine Appearance Clear (CLEAR,HAZY) Urine pH 5.0 (5.0-8.0) Urine Specific [place] 1.046 (1.003-1.035) Urine Protein Negativemg/dL (NEG,TRACE) Urine Glucose (UA) 500mg/dL (NEGATIVE) Urine Ketones 40mg/dL (NEGATIVE) Urine Occult Blood Negative (NEGATIVE) Urine Nitrite Negative (NEGATIVE) Urine Bilirubin Negative (NEGATIVE) Urine Urobilinogen Normalmg/dL (NORMAL) Urine Leukocyte Esterase Negative (NEGATIVE) Urine RBC 0-2/hpf (0-2) Urine WBC 0-5/hpf (0-5) Urine Epithelial Cells Few/hpf (NONE-MOD) Urine Crystals None seen (NONE SEEN) Urine Bacteria Few/hpf (NONE-FEW) Urine Hyaline Casts None/lpf (NONE) Urine Granular Casts None seen (NONE SEEN) Urine Waxy Casts None seen (NONE SEEN) Urine Red Blood Cell Casts None seen (NONE SEEN) Urine White Blood Cell Casts None seen (NONE SEEN) Urine Mucus None seen (None Seen) Urine Trichomonas None seen (NONE SEEN) Urine Yeast None (NONE SEEN) Urinalysis Comment None Urine Culture Reflexed Not indicated Hold Urine Received (Received) Hemoglobin A1c 10.1% (4.8-5.6) Lactic Acid Level 1.3mmol/L (0.4-2.0) Magnesium Level 1.6mg/dL (1.6-2.6) Chlamydia trachomatis DNA (JAK) Negative (Negative) Neisseria gonorrhoeae DNA (JAK) Negative (Negative) Test 12/01/16 05:45 12/02/16 05:30 12/02/16 10:50 Total Bilirubin 0.7mg/dL (0.0-1.2) Aspartate Amino Transf (AST/SGOT) 20U/L (0-50) Alanine Aminotransferase (ALT/SGPT) 16U/L (0-32) Alkaline Phosphatase 57U/L (25-150) Total Protein 5.9g/dL (6.4-8.4) Albumin 3.4g/dL (3.4-5.0) Procalcitonin 0.05ng/mL (0.00-0.08) Streptozyme 64.0IU/mL (0.0-200.0) White Blood Count 5.0th/mm3 (3.8-10.1) Red Blood Count 3.85mil/mm3 (3.90-5.20) Hemoglobin 11.2g/dL (12.0-15.6) Hematocrit 33.4% (35.0-46.0) Mean Corpuscular Volume 86.8fL (81-100) Mean Corpuscular Hemoglobin 29.1pg (27.0-35.0) Mean Corpuscular Hemoglobin Concent 33.5% (32.0-37.0) Red Cell Distribution Width 14.9% (12.3-15.4) Platelet Count 159bil/L (150-400) Neutrophils (%) (Auto) 48.4% (40-74) Lymphocytes (%) (Auto) 41.6% (14-46) Monocytes (%) (Auto) 5.8% (4-12) Eosinophils (%) (Auto) 3.6% (0-5) Basophils (%) (Auto) 0.2% (0-3) Erythrocyte Sedimentation Rate 42mm/hr (0-32) Sodium Level 139mEq/L (134-144) Potassium Level 3.7mEq/L (3.5-5.2) Chloride Level 104mEq/L (97-108) Carbon Dioxide Level 23mmol/L (18-29) Blood Urea Nitrogen 9mg/dL (6-20) Creatinine 0.30mg/dL (0.57-1.00) Estimat Glomerular Filtration Rate 355mL/min (>59) Glucose Level 220mg/dL (60-99) Calcium Level 8.4mg/dL (8.5-10.1) C-Reactive Protein 2.5mg/dL (0.0-0.5) Vancomycin Level Trough 9.7mcg/mL Microbiology Results Laboratory Tests Test 11/29/16 23:15 11/29/16 23:54 11/30/16 00:06 11/30/16 00:10 Urine Color Yellow (YELLOW) Urine Appearance Clear (CLEAR,HAZY) Urine pH 5.0 (5.0-8.0) Urine Specific [place] 1.046 (1.003-1.035) Urine Protein Negativemg/dL (NEG,TRACE) Urine Glucose (UA) 500mg/dL (NEGATIVE) Urine Ketones 40mg/dL (NEGATIVE) Urine Occult Blood Negative (NEGATIVE) Urine Nitrite Negative (NEGATIVE) Urine Bilirubin Negative (NEGATIVE) Urine Urobilinogen Normalmg/dL (NORMAL) Urine Leukocyte Esterase Negative (NEGATIVE) Urine RBC 0-2/hpf (0-2) Urine WBC 0-5/hpf (0-5) Urine Epithelial Cells Few/hpf (NONE-MOD) Urine Crystals None seen (NONE SEEN) Urine Bacteria Few/hpf (NONE-FEW) Urine Hyaline Casts None/lpf (NONE) Urine Granular Casts None seen (NONE SEEN) Urine Waxy Casts None seen (NONE SEEN) Urine Red Blood Cell Casts None seen (NONE SEEN) Urine White Blood Cell Casts None seen (NONE SEEN) Urine Mucus None seen (None Seen) Urine Trichomonas None seen (NONE SEEN) Urine Yeast None (NONE SEEN) Urinalysis Comment None Urine Culture Reflexed Not indicated Hold Urine Received (Received) Received (Received) White Blood Count 8.8th/mm3 (3.8-10.1) Red Blood Count 4.50mil/mm3 (3.90-5.20) Hemoglobin 13.4g/dL (12.0-15.6) Hematocrit 37.8% (35.0-46.0) Mean Corpuscular Volume 84.0fL (81-100) Mean Corpuscular Hemoglobin 29.8pg (27.0-35.0) Mean Corpuscular Hemoglobin Concent 35.4% (32.0-37.0) Red Cell Distribution Width 14.8% (12.3-15.4) Platelet Count 183bil/L (150-400) Neutrophils (%) (Auto) 72.4% (40-74) Lymphocytes (%) (Auto) 19.5% (14-46) Monocytes (%) (Auto) 5.4% (4-12) Eosinophils (%) (Auto) 2.3% (0-5) Basophils (%) (Auto) 0.1% (0-3) Sodium Level 135mEq/L (134-144) Potassium Level 3.5mEq/L (3.5-5.2) Chloride Level 98mEq/L (97-108) Carbon Dioxide Level 22mmol/L (18-29) Blood Urea Nitrogen 8mg/dL (6-20) Creatinine 0.44mg/dL (0.57-1.00) Estimat Glomerular Filtration Rate 228mL/min (>59) Glucose Level 414mg/dL (60-99) Lactic Acid Level 1.3mmol/L (0.4-2.0) Calcium Level 9.0mg/dL (8.5-10.1) Magnesium Level 1.6mg/dL (1.6-2.6) Total Bilirubin 0.9mg/dL (0.0-1.2) Aspartate Amino Transf (AST/SGOT) 17U/L (0-50) Alanine Aminotransferase (ALT/SGPT) 18U/L (0-32) Alkaline Phosphatase 70U/L (25-150) Total Protein 7.3g/dL (6.4-8.4) Albumin 3.9g/dL (3.4-5.0) Test 11/30/16 10:04 Microbiology 11/29/16 Blood Culture, Received Pending 11/30/16 Gram Stain - Final, Resulted 11/30/16 Genital Culture, Resulted Pending Discharge Medications Discharge Medications Albuterol HFA (Proair HFA) 8.5 Gm Hfa.aer.ad 2 PUFFS INHALATION Q4H (Reported) Amoxicillin/Clav K 875-125 mg (Augmentin 875-125 mg) 1 Each Tablet 1 TABLET PO BID Prescribed by: MEME AMATO DO Doxycycline Monohyd (Doxycycline Monohyd) 100 Mg Capsule 100 MG PO BID Prescribed by: EMME AMATO DO Insulin Glargine (Lantus U100 Insulin Vial) 100 Unit/Ml Vial 20 UNIT SUBQ DAILY Prescribed by: MEME AMATO DO Metformin (Metformin) 500 Mg Tablet 2,000 MG PO DAILY (Reported) As needed Ibuprofen (Ibuprofen) 600 Mg Tablet 600 MG PO QID PRN PRN For Pain Prescribed by: MEME AMATO DO oxyCODONE (oxyCODONE) 5 Mg Tablet 5 MG PO BID PRN PRN For Moderate Pain Prescribed by: MEME AMATO DO Followup Plan Disposition: Home Follow-up plan Follow up with Dr Namrata Bah at the [facility] on December 07, 2016 Discharge Diet: Diabetic Discharge Activity: No restrictions Patient Instructions Keep your area of infection clean. You should shower regularly no need to wash area excessively but do let warm (not hot) water run over it. No soaking in tubs or other bodies of water. Let the area that is draining, continue to drain. At follow up the doctor may want to help drain the area for you. Get better control of your blood sugars. Use the insulin as taught by the diabetic instructors. Check your sugars regularly fasting, before and after eating. Be aware of low blood sugars, if you have clumsiness, trouble talking, confusion, sweating shakiness, racing heart or weakness, eat something sugary and check your blood sugars or call 911. Follow-up with PCP in: 1 week Namrata aBh DO Dec 02, 2016 17:51
--- NOTE | 2016-12-02 18:39 | NUR ---
Discharge Note Patient discharged home, transport has not yet arrived. IV catheter x 1 removed. Discharge instructions/medications discussed & understood. Scripts x 5 to be hand carried to pharmacy. Roxycodone 5mg admin @ 1730, pain controlled upon discharge. All belongings gathered, nothing left behind. Patient being discharged home on lantus vial, teaching/return demonstration of drawing up 20units of insulin w/ sterile technique performed. Insulin syringes x 7 & alcohol wipes sent home w/ patient. Patient to be walked out by [facility] staff d/t discharge happening at shift change.
--- NOTE | 2016-12-02 19:27 | NUR ---
Discharge Pt discharged home with family and all belongings at 1925. Walked with pt out to ED entrance.
[2016-12-02] MEDS ORDERED: Vancomycin Inj 1,500 MG in 0.9% Sodium Chloride 500 ML IV SCH (20:00)
--- NOTE | 2016-12-02 20:45 | PCM.PNMED ---
Subjective Date of Service Dec 02, 2016 Subjective pain and swelling continues to improve,glucose improved Exam Vital Signs Vital Sign - Last Date Time Temp Pulse Resp B/P Pulse Ox O2 Delivery O2 Flow Rate FiO2 12/02/16 13:35 36.9 99 16 127/89 99 Room Air Intake and Output 12/01/16 12/01/16 12/02/16 Cumulative From/Thru 15:00 23:00 07:00 11/29/16 23:13 - 12/02/16 05:48 Intake Total 367 ml 240 ml 915 ml 6482 ml Output Total 400 ml 400 ml 600 ml 3500 ml Balance -33 ml -160 ml 315 ml 2982 ml Intake Oral 240 ml 325 ml 1865 ml IV Total 367 ml 590 ml 4617 ml Output Urine Total 400 ml 400 ml 600 ml 3500 ml # Voids 1 # Bowel Movements 0 0 Exam General: Alert, Oriented X3, Cooperative Mouth: Mouth Normal Neck: Supple Chest & Lungs: Clear to auscultation & percussion Cardiovascular: Regular Rate/Rhythm, Normal S1, Normal S2, No Murmurs/Rubs/ Gallops Abdomen: Non-tender Genitourinary: Other (offered transfusion nurse but declined ,right vulvar tender swelling 5x5cm,small opening at center with purulent discharge. Also 1x2cm tender nodule on proximal medial thigh. Erythematous, tender, warm to touch area on medial proximal thigh) MUCH IMPROVED IVs and Medications Medications Reviewed: Medications were reviewed in detail Lab and Diagnostics Result Diagram: 12/02/16 0530 12/02/16 0530 Microbiology Laboratory Tests Test 11/29/16 23:15 11/29/16 23:54 11/30/16 00:06 11/30/16 00:10 Urine Color Yellow (YELLOW) Urine Appearance Clear (CLEAR,HAZY) Urine pH 5.0 (5.0-8.0) Urine Specific [place] 1.046 (1.003-1.035) Urine Protein Negativemg/dL (NEG,TRACE) Urine Glucose (UA) 500mg/dL (NEGATIVE) Urine Ketones 40mg/dL (NEGATIVE) Urine Occult Blood Negative (NEGATIVE) Urine Nitrite Negative (NEGATIVE) Urine Bilirubin Negative (NEGATIVE) Urine Urobilinogen Normalmg/dL (NORMAL) Urine Leukocyte Esterase Negative (NEGATIVE) Urine RBC 0-2/hpf (0-2) Urine WBC 0-5/hpf (0-5) Urine Epithelial Cells Few/hpf (NONE-MOD) Urine Crystals None seen (NONE SEEN) Urine Bacteria Few/hpf (NONE-FEW) Urine Hyaline Casts None/lpf (NONE) Urine Granular Casts None seen (NONE SEEN) Urine Waxy Casts None seen (NONE SEEN) Urine Red Blood Cell Casts None seen (NONE SEEN) Urine White Blood Cell Casts None seen (NONE SEEN) Urine Mucus None seen (None Seen) Urine Trichomonas None seen (NONE SEEN) Urine Yeast None (NONE SEEN) Urinalysis Comment None Urine Culture Reflexed Not indicated Hold Urine Received (Received) Received (Received) White Blood Count 8.8th/mm3 (3.8-10.1) Red Blood Count 4.50mil/mm3 (3.90-5.20) Hemoglobin 13.4g/dL (12.0-15.6) Hematocrit 37.8% (35.0-46.0) Mean Corpuscular Volume 84.0fL (81-100) Mean Corpuscular Hemoglobin 29.8pg (27.0-35.0) Mean Corpuscular Hemoglobin Concent 35.4% (32.0-37.0) Red Cell Distribution Width 14.8% (12.3-15.4) Platelet Count 183bil/L (150-400) Neutrophils (%) (Auto) 72.4% (40-74) Lymphocytes (%) (Auto) 19.5% (14-46) Monocytes (%) (Auto) 5.4% (4-12) Eosinophils (%) (Auto) 2.3% (0-5) Basophils (%) (Auto) 0.1% (0-3) Sodium Level 135mEq/L (134-144) Potassium Level 3.5mEq/L (3.5-5.2) Chloride Level 98mEq/L (97-108) Carbon Dioxide Level 22mmol/L (18-29) Blood Urea Nitrogen 8mg/dL (6-20) Creatinine 0.44mg/dL (0.57-1.00) Estimat Glomerular Filtration Rate 228mL/min (>59) Glucose Level 414mg/dL (60-99) Lactic Acid Level 1.3mmol/L (0.4-2.0) Calcium Level 9.0mg/dL (8.5-10.1) Magnesium Level 1.6mg/dL (1.6-2.6) Total Bilirubin 0.9mg/dL (0.0-1.2) Aspartate Amino Transf (AST/SGOT) 17U/L (0-50) Alanine Aminotransferase (ALT/SGPT) 18U/L (0-32) Alkaline Phosphatase 70U/L (25-150) Total Protein 7.3g/dL (6.4-8.4) Albumin 3.9g/dL (3.4-5.0) Test 11/30/16 10:04 Microbiology 11/29/16 Blood Culture, Received Pending 11/30/16 Gram Stain - Final, Resulted 11/30/16 Genital Culture, Resulted Pending X-Rays, CTs and MRIs CT PELVIS WITH CONTRAST IMPRESSION: 3.7 x 1.7 x 2.2 cm right vulvar abscess. Dictated by: Yuko Duron MD, PhD on 11/30/2016 at 8:45 X-RAY CHEST ONE VIEW, PORTABLE IMPRESSION: No radiographic evidence of acute cardiopulmonary pathology. Dictated by: Amrik Lee M.D. on 11/30/2016 at 7:40 Assessment & Plan 41-year-old lady with past medical history of diabetes mellitus type II, history of right vulvar abscess presented with right vulvar pain and swelling x 6 days Right vulvar and proximal medial thigh cellulitis with abscess, poa, acute -Patient reported that this is a recurrent issue. Likely related to obesity and uncontrolled DM2. Improving -Pain control with Percocet PO -Received a dose of clindamycin in ED on 11/30, This was DC and changed to IV Unasyn and IV Vancomycin to cover MRSA. discharged on doxy and Augmentin -Blood culture and abscess culture pending - prelim results shows GPC (Staph and GBS). Awaiting BRET, discharged on Augmentin and Doxycycline for coverage of both organism. -Continue with Sitz bath daily and encourage ambulation. -GC/CT screen neg. ASO 64 Uncontrolled diabetes mellitus type II, POA, chronic - Patient will continue with current Insulin regimen Lantus 20 U HS and sliding scale and titrate as needed. outpatient diabetic education -advised to follow with [facility] residency as new PCP.SW to arrange -A1c 10.1 on admission -Lantus QHS and glucometer prescribed. continue metformin,check glucose 3 x /day .counselled on sliding scale BMI 43.3 -Encouraged healthy lifestyle for weight loss Tobacco Use, POA -Encourage cessation -Nicotine patch prn Dispo: Discharge today, tomorrow, awaiting culture BRET. Likely follow up with [facility] Women's health for short interval f/u and also follow up [facility] with Dr. Namrata Bah in 2-3 days. VTE Prophylaxis: Sub-Q Enoxaparin Resuscitation Status: CPR: Attempt Resuscitation copies to: [facility] Grover Lau MD Dec 02, 2016 20:45
[2016-12-03] MEDS ORDERED: Vancomycin Serum Trough XX ONE (19:30)
--- NOTE | 2016-12-05 13:52 | NUR ---
Discharge Diabetic phone call attempt: Patient called. No pickup. Message left requesting call back.
== END 2016-12-02 19:25 | disposition home or self-care (01) ==
LOC: SED 23:11 → OSC 11-30 03:14
PROVIDERS: ADMIT Obstetrics & Gynecology; ATTEND Internal Medicine
DX: N76.4 Abscess of vulva (principal); N76.2 Acute vulvitis; L03.115 Cellulitis of right lower limb; L02.415 Cutaneous abscess of right lower limb; B95.62 Methicillin resistant Staphylococcus aureus infection as the cause of diseases classified elsewhere; E11.65 Type 2 diabetes mellitus with hyperglycemia; E66.01 Morbid (severe) obesity due to excess calories; J45.909 Unspecified asthma, uncomplicated; F17.210 Nicotine dependence, cigarettes, uncomplicated; Z68.41 Body mass index [BMI] 40.0-44.9, adult; Z79.84 Long term (current) use of oral hypoglycemic drugs; Z88.8 Allergy status to other drugs, medicaments and biological substances; Z86.14 Personal history of Methicillin resistant Staphylococcus aureus infection
CPT/HCPCS: 36415; 71010; 72193; 80048; 80053; 80202; 81000; 81025; 83036; 83605; 83735; 84145; 85025; 85651; 86060; 86140; 87040; 87070; 87147; 87186; 87491; 87591; 96361; 96365; 96366; 96367; 96372; 96375; 96376; 99285; G0378; J0295; J1170; J1200; J1650; J1815; J2270; J2405; J3370; J3490; J7030; J7040; J7042; J7050; Q9967